=== PATIENT | male | born 2000 | race Caucasian/White ===

== ENCOUNTER 2022-08-02 09:59 | Emergency (ER) | payer OTHER, BC, SELFPAY ==
[2022-08-02 10:00] VITALS: BP 132/92; PULSE 96; RESP 18; TEMP 36.2; O2SAT 100; BMI 29.5
--- NOTE | 2022-08-02 10:24 | RAD_ITS ---
STUDY: X-RAY - RIGHT FOOT CLINICAL: Male, 22 years old. Right toe injury. TECHNIQUE: 3 view(s) of the foot. COMPARISON: None. FINDINGS: Normal talus, calcaneus, and tarsal bones. Normal visualized subtalar, talonavicular, calcaneocuboid, tarsal and tarsometatarsal articulations. Normal metatarsi. Normal metatarsophalangeal joint of the great toe. Normal tibial and fibular sesamoid bones. Normal interphalangeal joint of the great toe. Normal phalanges of the great toe. Normal second through fifth metatarsophalangeal joints. Normal interphalangeal joints and phalanges of the lesser toes. The soft tissue structures are unremarkable. RAD/Foot min 3 Views IMPRESSION: Normal x-ray examination of the foot. Electronically Signed: Gentry Chaves MD at 10:47 EDT ,
--- NOTE | 2022-08-02 10:25 | ED.VIS.LOWEX ---
HPI History of Present Illness Chief Complaint: Lower Extremity Injury Informant: patient Narrative Narrative: Patient presents after an acute work-related injury to his right foot. He was mowing on a riding mower, he states he had his foot hanging off of it, his jeans were stuck and he went over some terrain where his shoe got stuck in a hole and all of this created some type of hyper plantarflexion mechanism and he has pain to his foot, mostly to the midfoot and forefoot along the first ray. He states he can bear weight on his right lower extremity only if he applies the pressure to his heel and not the rest of the foot. Denies any ankle pain or injuries elsewhere. PFSH PFSH Medical History no medical history no medical history Allergy/AdvReac Type Severity Reaction Status Date / Time No Known Allergies Allergy Verified 08/02/22 10:03 Family History no significant family his Surgical History no surgical history Social History Smoking Status: Never smoker ROS ROS ED Constitutional Constitutional ED: Denies chills or fever(s) Musculoskeletal Musculoskeletal: Reports extremity pain; Denies neck pain Integumentary Denies Abrasions, rash or wounds Neurologic Neurologic: Denies paresthesias or weakness EXAM Physical Exam Const Vital Signs: 08/02/22 10:00 Temperature 97.2 F L Temperature Source Temporal Pulse Rate 96 Respiratory Rate 18 Blood Pressure 132/92 H Blood Pressure Mean 105 Pulse Ox 100 Oxygen Delivery Method Room Air Positive well nourished and well developed General Appearance ED: well developed and NAD Neck full ROM and supple Back/Spine normal ROM and normal to inspection Extremity normal to inspection and full ROM Extremity Narrative: Nontender throughout the right ankle and proximal to that, there is no swelling in the talus does not seem to be tender just distal to the malleoli. He does have some mild tenderness in the soft tissues of the arch medially, there is some mild tenderness of the midfoot dorsally without any deformities or swelling, and more significant tenderness to the proximal phalanx of the great toe and the MTPJ. No obvious sign of injury here. The boot that he is wearing on the contralateral foot is quite bulky. Neuro oriented x3, no focal motor deficits and no sensory deficits noted Sensorium / Orientation: alert Psych mental status grossly normal and thought process normal Skin no wounds Rashes: no rashes MDM MDM MDM Narrative Medical decision making narrative: Three-view x-ray series of the right foot on my interpretation negative for any fracture or dislocation. Radiology in agreement I reviewed the report and agree with it. Patient reassured, given ibuprofen here and appropriate work restrictions temporarily. We will offer him a postop shoe to see if that helps him walk better. He declines, and before putting his shoe back on he is able to walk to the bathroom without any difficulty. Radiography Diagnostic Testing: Clinical Impression(s) from Imaging Studies Foot X-Ray 08/02/22 10:24 IMPRESSION: Normal x-ray examination of the foot. Electronically Signed: Gentry Chaves MD at 10:47 EDT , Discharge Plan Triage Chief Complaint: Lower Extremity Injury ED Provider: Albert Dalton Dx/Rx/DC Orders Clinical Impression: Right foot sprain Instructions: ED Foot Sprain Stand Alone Forms: Work Status Form Primary Care Provider: Care Physician,No Primary Referrals: [facility] [Group of Physicians] - As soon as possible NOT,DEFINED [Non-Staff] - Disposition Disposition: Home, Self Care
[2022-08-02] MEDS: Ibuprofen 600 MG Tablet PO (11:03)
--- NOTE | 2022-08-02 11:17 | ED.RN ---
some confusion regarding patients needing drug screen. pt thought his father told him no. Rn requested to speak to his dad. 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
== END 2022-08-02 11:19 | disposition home or self-care (01) ==
LOC: ED 10:49
PROVIDERS: Emergency Provider Emergency Medicine; Visit Provider Emergency Medicine
DX: S93.601A Unspecified sprain of right foot, initial encounter (principal); Y99.0 Civilian activity done for income or pay; X58.XXXA Exposure to other specified factors, initial encounter; Y93.H9 Activity, other involving exterior property and land maintenance, building and construction
CPT/HCPCS: 73630; 99283